=== PATIENT | male | born 1980 | race Caucasian/White ===

== ENCOUNTER 2023-03-12 05:21 | Emergency (ER) | payer BC ==
[~2023-03-12] VITALS: Ht 180.3 cm; Wt 90.0 kg
[2023-03-12 06:06] LABS: BASOPHILS % (AUTO) 0.3 % (0-1); EOSINOPHILS # (AUTO) 0.2 X10'3 (0-0.9); EOSINOPHILS % (AUTO) 2.6 % (0-6); HEMATOCRIT 52.4 % (42.0-52.0); LYMPHOCYTES # (AUTO) 1.9 X10'3 (1.1-4.8); LYMPHOCYTES % (AUTO) 27.8 % (21-51); MEAN CORPUSCULAR HEMOGLOBIN 30.2 PG (27.0-31.0); MEAN CORPUSCULAR HGB CONC 34.4 g/dL (33.0-36.5); MEAN CORPUSCULAR VOLUME 87.7 FL (78-98); MEAN PLATELET VOLUME 7.4 FL (7.4-10.4); MONOCYTES # (AUTO) 0.5 X10'3 (0-0.9); NEUTROPHILS # (AUTO) 4.1 X10'3 (1.8-7.7); NEUTROPHILS % (AUTO) 61.3 % (42-75); PLATELET COUNT 227 X10'3 (140-440); RED BLOOD COUNT 5.97 X10'6 (4.70-6.10); RED CELL DISTRIBUTION WIDTH 13.1 % (11.5-14.5); WHITE BLOOD COUNT 6.7 X10'3 (4.5-11.0)
[2023-03-12 06:25] LABS: ALANINE AMINOTRANSFERASE 18 U/L (12-78); ALBUMIN 4.3 G/DL (3.4-5.0); ALBUMIN/GLOBULIN RATIO 1.1 (1.1-1.5); ALKALINE PHOSPHATASE 70 IU/L (46-116); ANION GAP 10 (8-16); ASPARTATE AMINO TRANSFERASE 22 U/L (10-37); BILIRUBIN,TOTAL 0.8 MG/DL (0.1-1.0); BLOOD UREA NITROGEN 17 MG/DL (7-18); BUN/CREATININE RATIO 15.7 (10.0-20.0); CALCIUM 9.6 MG/DL (8.5-10.1); CHLORIDE 99 MMOL/L (99-107); CREATININE 1.08 MG/DL (0.60-1.10); GLUCOSE 106 MG/DL (70-104); POTASSIUM 3.1 MMOL/L (3.5-5.1); SODIUM 135 MMOL/L (135-145); TOTAL CARBON DIOXIDE 26.3 MMOL/L (24-32); TOTAL PROTEIN 8.2 G/DL (6.4-8.2); eCRCL 97 ML/MIN; eGFR 76 ML/MIN
[2023-03-12 06:35] LABS: PRO BRAIN NATRIURETIC PEPTIDE < 30 PG/ML (0-125)
[2023-03-12] MEDS ORDERED: famotidine/PF 10 mg/ml inj IV ONE (06:50)
[2023-03-12] MEDS ORDERED: morphine 4 MG/ML inj SYRINge IV ONE (06:50)
[2023-03-12] MEDS ORDERED: ondansetron/PF 4mg/2ml inj IV ONE (06:50)
[2023-03-12] MEDS ORDERED: aspirin 81mg tab.chew PO ONE (06:50)
[2023-03-12] MEDS ORDERED: normal saline 1000ML IV soln IVB ONE (06:50)
[2023-03-12] MEDS ORDERED: potassium Cl 20 mEq SR tablet PO STA (07:10)
[2023-03-12 08:02] VITALS: TEMP 97.6
[2023-03-12 09:19] VITALS: RESP 12
[2023-03-12 09:21] LABS: D-DIMER 1.48 MG/L FEU (0-0.50)
[2023-03-12] MEDS ORDERED: iohexol 300mg/ml 100ml inj. ONE (10:20)
[2023-03-12] MEDS ORDERED: iohexol 350MG/ML 100ml bottle IV ONE (10:22)
[2023-03-12] MEDS ORDERED: PANT20TA2 PO (11:27)
[2023-03-12 11:42] VITALS: BP 130/98; PULSE 75; O2SAT 99
== END 2023-03-12 11:45 | disposition home or self-care (01) ==
LOC: ER 05:22
DX: R07.9 Chest pain, unspecified (principal); Z20.822 Contact with and (suspected) exposure to COVID-19; R05.9 Cough, unspecified; Z79.899 Other long term (current) drug therapy
CPT/HCPCS: 36415; 71045; 71275; 80053; 83690; 83880; 84484; 85025; 85379; 87502; 87503; 87811; 93005; 96374; 99285; J3490; J7030; Q9967